=== PATIENT | female | born 1980 ===

== ENCOUNTER 2017-07-15 17:22 | Emergency (ER) | payer MEDICAID, OTHER ==
[2017-07-15 17:34] VITALS: BP 119/79
--- NOTE | 2017-07-15 18:19 | ED PDOC ---
Arrival/HPI - General Chief Complaint: Female Genitourinary Time Seen by Provider: 07/15/17 17:25 Historian: Patient - History of Present Illness Narrative History of Present Illness (Text): 07/15/17 18:00 37yo female who present with complaint of right sided pelvic pain and vaginal spotting since yesterday. Patient reports LMP of 06/12/17. States she had positive home test on 07/10/17. Pain and bleeding started last night. She have not seen her OB. She denies nausea, vomiting, urinary frequency , dysuria, fever, back pain, any other complaint. Past Medical History - Provider Review Nursing Documentation Reviewed: Yes - Infectious Disease Hx of Infectious Diseases: None - Psychiatric Hx Substance Use: No - Surgical History Hx Section: Yes (x2) Other/Comment: hx of ectopic - Anesthesia Hx Anesthesia: Yes Hx Anesthesia Reactions: No Family/Social History - Physician Review Nursing Documentation Reviewed: Yes Family/Social History: Unknown Family HX Smoking Status: Never Smoked Hx Alcohol Use: No Hx Substance Use: No Allergies/Home Meds Allergies/Adverse Reactions: Allergies No Known Allergies Allergy (Verified 07/15/17 17:30) Review of Systems - Physician Review All systems were reviewed & negative as marked: Yes - Review of Systems Constitutional: Normal Eyes: Normal ENT: Normal Respiratory: Normal Cardiovascular: Normal Gastrointestinal: Abdominal Pain. absent: Constipation, Diarrhea, Nausea, Hematochezia, Hematemesis Genitourinary Female: Vaginal Bleeding. absent: Dysuria, Frequency, Hematuria Musculoskeletal: Normal Skin: Normal Neurological: Normal Endocrine: Normal Hemo/Lymphatic: Normal Psychiatric: Normal Physical Exam Vital Signs Reviewed: Yes Vital Signs Temp Pulse Resp BP Pulse Ox 07/15/17 17:33 98.3 F 77 18 119/79 99 Temperature: Afebrile Blood Pressure: Normal Pulse: Regular Respiratory Rate: Normal Appearance: Positive for: Well-Appearing, Non-Toxic, Comfortable Pain Distress: None Mental Status: Positive for: Alert and Oriented X 3 - Systems Exam Head: Present: Atraumatic, Normocephalic Pupils: Present: PERRL Extroacular Muscles: Present: EOMI Conjunctiva: Present: Normal Mouth: Present: Moist Mucous Membranes Neck: Present: Normal Range of Motion Respiratory/Chest: Present: Clear to Auscultation, Good Air Exchange. No: Respiratory Distress, Accessory Muscle Use Cardiovascular: Present: Regular Rate and Rhythm, Normal S1, S2. No: Murmurs Abdomen: Present: Normal Bowel Sounds. No: Tenderness, Distention, Peritoneal Signs, Rebound, Guarding, McBurney's Point Tender, Rovsing's Sign Present Genitourinary/Pelvic Exam: Present: Cervical os Closed. No: Vaginal Bleeding Back: Present: Normal Inspection Upper Extremity: Present: Normal Inspection. No: Cyanosis, Edema Lower Extremity: Present: Normal Inspection. No: Edema Neurological: Present: GCS=15, CN II-XII Intact, Speech Normal Skin: Present: Warm, Dry, Normal Color. No: Rashes Psychiatric: Present: Alert, Oriented x 3, Normal Insight, Normal Concentration Medical Decision Making ED Course and Treatment: 07/15/17 19:31 PT in ED for stated history. She was not in any distress. Lab was reviewed with beta of 8513.00 noted. Transvaginal US OB TRANSVAGINAL Exam Date: 07/15/17 This imaging exam was performed at [facility] EXAM: US First Trimester, Transabdominal CLINICAL HISTORY: 37 years old, female; Pain; complicated by abdominal or pelvic pain; Right lower quadrant; First trimester; Gestational age or lmp: Lmp 06/12/2017; ; Patient HX: Patient spotting; Additional info: Abdominal pain/ TECHNIQUE: Real-time transabdominal obstetrical ultrasound of the maternal pelvis and a first trimester with image documentation. COMPARISON: There are no prior studies for comparison. FINDINGS:. Uterus: Uterus measures approximately 9 x 4.5 x 5.5 cm. There is a small cystic structure in the endometrium, mean diameter 5.4 mm. Endometrium measures 13 mm in width. Ovaries: Left ovary measures approximately 2.7 x 1.7 x 2.8 cm. Right ovary measures approximately 3.6 x 2.2 x 3 cm. In There are multiple small follicles. There is intraovarian blood flow. Free fluid: There is no free fluid. Bladder: Bladder is partially distended. IMPRESSION: Limited transabdominal study, early intrauterine gestation EXAM: US , Transvaginal EXAM DATE/TIME: 07/15/2017 5:49 PM CLINICAL HISTORY: 37 years old, female; Pain; complicated by abdominal or pelvic pain; Right lower quadrant; First trimester; Gestational age or lmp: Lmp 06/12/2017; ; Patient HX: Patient spotting; Additional info: Abdominal pain/ TECHNIQUE: Real-time transvaginal obstetrical ultrasound of the maternal pelvis and a first trimester with image documentation. Transvaginal imaging was used for better evaluation of the fetus and adnexa. COMPARISON: There are no prior studies for comparison. FINDINGS: Gestation: There is a small gestational sac in the uterus. Gestational sac has mean diameter 9.2 mm. Yolk sac and pole are not yet visible. Uterus: There are multiple nabothian cysts in the cervix Ovaries: Right ovary measures approximately 2.9 x 2.4 x 3 cm. Left ovary measures approximately 2.5 x 2.1 x 2.1 cm. There is flow in both ovaries on Doppler imaging. Free fluid: There is no free fluid. IMPRESSION: Intrauterine gestation too early to date, yolk sac and pole not yet present Followup suggested to document development of pole Dictated By: Carol Swift MD, MD Dictated Date/Time: 07/15/171930 Signed By: Carol Swift MD Date Signed: 1930 Transcribed By: DAVID Transcribe Date/Time : 07/15/171930 KORSHMD/VRD Result was DW the pt. she was advised to f/u with her OB or return to ED in 2days for a repeat beta. - Lab Interpretations Lab Results: 07/15/17 18:20 07/15/17 18:20 Lab Results 07/15/17 19:21: PT 10.9, INR 1.00, APTT 26.3 07/15/17 19:00: Urine Color Yellow, Urine Appearance Cloudy, Urine pH 6.0, Ur Specific [place] 1.020, Urine Protein Negative, Urine Glucose (UA) Negative, Urine Ketones Negative, Urine Blood Large H, Urine Nitrate Negative, Urine Bilirubin Negative, Urine Urobilinogen 0.2, Ur Leukocyte Esterase Negative, Urine RBC Tntc, Urine WBC 0 - 2, Ur Epithelial Cells 10 - 12, Urine Bacteria Small, Urine HCG, Qual Positive 07/15/17 18:20: Beta HCG, Quant 8512.90 H 07/15/17 18:20: Sodium 137, Potassium 4.5, Chloride 106, Carbon Dioxide 22, Anion Gap 15, BUN 15, Creatinine 0.6 L, Est GFR ( Amer) > 60, Est GFR ( Non-Af Amer) > 60, Random Glucose 90, Calcium 9.3, Total Bilirubin 0.5, AST 27, ALT 23, Alkaline Phosphatase 53, Total Protein 7.4, Albumin 4.2, Globulin 3.3, Albumin/Globulin Ratio 1.3 07/15/17 18:20: WBC 8.3, RBC 4.23, Hgb 12.5, Hct 37.1, MCV 87.7, MCH 29.6, MCHC 33.7, RDW 12.9, Plt Count 257, MPV 11.3 H, Gran % 60.4, Lymph % (Auto) 32.2, [place] % (Auto) 5.9, Eos % (Auto) 1.3 L, Baso % (Auto) 0.2, Gran # 4.98, Lymph # 2.7, [place] # 0.5, Eos # 0.1, Baso # 0.02 - RAD Interpretation Radiology Orders: 07/15/17 17:49 OB TRANSVAGINAL [US] Stat Disposition/Present on Arrival - Present on Arrival Any Indicators Present on Arrival: No History of DVT/PE: No History of Uncontrolled Diabetes: No Urinary Catheter: No History of Decub. Ulcer: No History Surgical Site Infection Following: None - Disposition Have Diagnosis and Disposition been Completed?: Yes Diagnosis: Threatened Disposition: HOME/ ROUTINE Disposition Time: 19:50 Patient Plan: Discharge Patient Problems: Current Active Problems Problem Status Onset Threatened Acute Condition: STABLE Discharge Instructions (ExitCare): Threatened Miscarriage (ED) Additional Instructions: Follow up with your OB or return to ED in 2days for a repeat beta Return to ED for any new or worsening symptoms Prescriptions: Multivit/Folic Acid/I [ Plus] 1 tab PO DAILY #30 tab [facility] - Follow up with primary Terence Dodd MD [Staff Provider] - Follow up with primary Forms: [employer] (Polish)
[2017-07-15 18:32] LABS: BASO # 0.02 K/mm3 (0.0-2.0); BASO % 0.2 % (0.0-3.0); EOS # 0.1 (0.0-0.7); EOS % 1.3 % (1.5-5.0); GRAN # 4.98 (1.4-6.5); GRAN % 60.4 % (50.0-68.0); HEMOGLOBIN 12.5 g/dL (12.0-16.0); LYMPH # 2.7 (1.2-3.4); LYMPH % 32.2 % (22.0-35.0); MEAN CELL VOLUME 87.7 fl (80.0-105.0); MEAN CORPUSCULAR HEMOGLOBIN 29.6 pg (25.0-35.0); MEAN CORPUSCULAR HGB CONC 33.7 g/dl (31.0-37.0); MEAN PLATELET VOLUME 11.3 fl (7.0-11.0); MONO # 0.5 (0.1-0.6); MONO % 5.9 % (1.0-6.0); RBC 4.23 10^6/uL (3.5-6.1); RED CELL DISTRIBUTION WIDTH 12.9 % (11.5-14.5); WHITE BLOOD COUNT 8.3 10^3/ul (4.5-11.0)
[2017-07-15 18:47] LABS: ALB/GLOB RATIO 1.3 (1.1-1.8); ALBUMIN 4.2 g/dL (3.0-4.8); ALT/SGPT 23 U/L (7-56); AST/SGOT 27 U/L (14-36); BLOOD UREA NITROGEN 15 mg/dL (7-21); CALCIUM 9.3 mg/dL (8.4-10.5); GFR AFRICAN-AMERICAN > 60; GFR NON-AFRICAN AMERICAN > 60
--- NOTE | 2017-07-15 19:31 | US ---
EXAM: US First Trimester, Transabdominal CLINICAL HISTORY: 37 years old, female; Pain; complicated by abdominal or pelvic pain; Right lower quadrant; First trimester; Gestational age or lmp: Lmp 06/12/2017; ; Patient HX: Patient spotting; Additional info: Abdominal pain/ TECHNIQUE: Real-time transabdominal obstetrical ultrasound of the maternal pelvis and a first trimester with image documentation. COMPARISON: There are no prior studies for comparison. FINDINGS:. Uterus: Uterus measures approximately 9 x 4.5 x 5.5 cm. There is a small cystic structure in the endometrium, mean diameter 5.4 mm. Endometrium measures 13 mm in width. Ovaries: Left ovary measures approximately 2.7 x 1.7 x 2.8 cm. Right ovary measures approximately 3.6 x 2.2 x 3 cm. In There are multiple small follicles. There is intraovarian blood flow. Free fluid: There is no free fluid. Bladder: Bladder is partially distended. IMPRESSION: Limited transabdominal study, early intrauterine gestation EXAM: US , Transvaginal EXAM DATE/TIME: 07/15/2017 5:49 PM CLINICAL HISTORY: 37 years old, female; Pain; complicated by abdominal or pelvic pain; Right lower quadrant; First trimester; Gestational age or lmp: Lmp 06/12/2017; ; Patient HX: Patient spotting; Additional info: Abdominal pain/ TECHNIQUE: Real-time transvaginal obstetrical ultrasound of the maternal pelvis and a first trimester with image documentation. Transvaginal imaging was used for better evaluation of the fetus and adnexa. COMPARISON: There are no prior studies for comparison. FINDINGS: Gestation: There is a small gestational sac in the uterus. Gestational sac has mean diameter 9.2 mm. Yolk sac and pole are not yet visible. Uterus: There are multiple nabothian cysts in the cervix Ovaries: Right ovary measures approximately 2.9 x 2.4 x 3 cm. Left ovary measures approximately 2.5 x 2.1 x 2.1 cm. There is flow in both ovaries on Doppler imaging. Free fluid: There is no free fluid. IMPRESSION: Intrauterine gestation too early to date, yolk sac and pole not yet present Followup suggested to document development of pole
[2017-07-15 19:37] LABS: URINE BILIRUBIN NEGATIVE (NEGATIVE); URINE BLOOD LARGE (NEGATIVE); URINE GLUCOSE (UA) NEGATIVE (NEGATIVE); URINE LEUKOCYTE ESTERASE NEGATIVE Leu/uL (NEGATIVE); URINE NITRATE NEGATIVE (NEGATIVE); URINE PROTEIN NEGATIVE mg/dL (<30 mg/dL); URINE UROBILINOGEN 0.2 E.U./dL (<1 E.U./dL)
[2017-07-15 19:39] LABS: HCG,QUALITATIVE URINE POSITIVE (NEGATIVE); URINE APPEARANCE CLOUDY (CLEAR); URINE COLOR YELLOW (YELLOW)
[2017-07-15 19:47] LABS: URINE BACTERIA SMALL (NEG); URINE RBC TNTC /hpf (0-2); URINE WBC 0 - 2 /hpf (0-6)
[2017-07-15 19:48] LABS: PARTIAL THROMBOPLASTIN TIME 26.3 Seconds (25.1-36.5); PROTHROMBIN TIME 10.9 SECONDS (9.4-12.5)
[2017-07-15 20:05] VITALS: PULSE 90; RESP 18; TEMP 98.1; O2SAT 99
== END 2017-07-15 20:06 | disposition home or self-care (01) ==
LOC: ED 17:22
DX: O20.0 Threatened abortion (principal); Z3A.00 Weeks of gestation of pregnancy not specified